=== PATIENT | female | born 1950 | race Caucasian/White ===

== ENCOUNTER 2020-05-03 10:52 | Day surgery (SDC) | payer BC ==
[2020-05-03] MEDS ORDERED: fentaNYL 250 MCG/5 ML VIAL IVP ONE (10:53)
[2020-05-03] MEDS ORDERED: MIDAZOLAM 2 MG/2 ML VIAL IVP ONE (10:53)
[2020-05-03] MEDS ORDERED: LACTATED RINGERS 1,000 ML IV ONE (11:19)
[2020-05-03] MEDS ORDERED: LACTATED RINGERS 100 ML IV ONE (13:43)
[2020-05-03] MEDS ORDERED: ONDANSETRON 4 MG/2 ML VIAL ONE (14:18)
[2020-05-03 14:20] VITALS: BP 115/85
== END 2020-05-03 10:53 | disposition home or self-care (01) ==
LOC: SDS 10:52
PROVIDERS: ATTEND Internal Medicine Gastroenterology
PROC: 0DBK8ZZ Excision of Ascending Colon, Via Natural or Artificial Opening Endoscopic (ICD-10-PCS; principal; 2020-05-03 12:00)
DX: Z12.11 Encounter for screening for malignant neoplasm of colon (principal); D12.2 Benign neoplasm of ascending colon
CPT/HCPCS: 45380; J3010; J7120

== ENCOUNTER 2020-05-05 09:38 | Outpatient (CLI) | payer BC ==
--- NOTE | 2020-05-05 14:35 | DEXA Report ---
PROCEDURE: Dexa Spine and/or Hip INDICATIONS: BONE DISEASE TECHNIQUE: Dual energy x-ray absorptiometry (DXA) was performed on a [employer] System. Regions measur ed are the AP Spine, femoral neck, and if needed forearm. COMPARISON: None. FINDINGS: Lumbar Spine: Bone Mineral Density 1.186 g/cm/cm,T score 0.1, normal Left Hip: Bone Mineral Density 0.853 g/cm/cm,T score -1.2, osteopenia Left Femoral Neck: Bone Mineral Density 0.854 g/cm/cm, T score -1.3, osteopenia (T score greater or equal to -1.0: NORMAL) (T score from -1.1 to -2.4: OSTEOPENIA) (T score less than or equal to -2.5 to: OSTEOPOROSIS) Impression: Osteopenia at the left hip and left femoral neck, normal bone mineral density of the lumb osacral spine. Patients with diagnosis of osteoporosis or osteopenia should have regular bone mineral density assess ment. For those eligible for Medicare, routine testing is allowed once every 2 years. Testing frequ ency can be increased for patients who have rapidly progressing disease or for those who are receivin g medical therapy to restore bone mass. Reviewed by: Priyank Pete MD on 05/05/2020 2:34 PM PDT Approved by: Priyank Pete MD on 05/05/2020 2:34 PM PDT Station ID: [id number]
== END 2020-05-05 09:39 | disposition home or self-care (01) ==
LOC: DI 09:38
PROVIDERS: ATTEND Registered Nurse
DX: M85.89 Other specified disorders of bone density and structure, multiple sites (principal)
CPT/HCPCS: 77080

== ENCOUNTER 2020-10-04 15:29 | Outpatient (CLI) | payer BC, MEDICARE ==
--- NOTE | 2020-10-05 12:47 | Mammography Report ---
BILATERAL DIGITAL SCREENING MAMMOGRAM 3D/2D: 10/04/2020 CLINICAL: Routine screening. Routine screening. No prior exams were available for comparison. The tissue of both breasts is extremely dense, which l owers the sensitivity of mammography. There are grouped fine calcifications in the right breast at 7 o'clock posterior depth. There are grouped fine punctate calcifications in the left breast at 1 o'clock posterior depth. No other significant masses or calcifications are seen in either breast. IMPRESSION: INCOMPLETE: NEEDS ADDITIONAL IMAGING EVALUATION The grouped fine calcifications in the right breast at 7 o'clock posterior depth are indeterminate. Mediolateral, spot magnification, and additional views are recommended. The grouped fine punctate calcifications in the left breast at 1 o'clock posterior depth are indeterm inate. Mediolateral, spot magnification, and additional views are recommended. This exam was interpreted at Station ID: [id number]. NOTE: For mammograms, a report in lay terms will be sent to the patient. Approximately 15% of breast malignancies will not be visualized mammographically. In the management of a palpable breast mass, a negative mammogram must not discourage biopsy of a clinically suspicious lesion. Electronically Signed By: Deondre Fofana M.D. ddp/:10/04/2020 16:06:22 ACR BI-RADS Category 0: Incomplete 3340F PARENCHYMAL PATTERN: (VD) - The breast(s) demonstrate(s) extremely dense parenchyma, limiting the sen sitivity of mammography. BI-RADS CATEGORY: (0) - 0 RECOMMENDATION: (ADDMAM) - Recommend additional mammographic views. [id number] Immediate follow-up LATERALITY: (B)
== END 2020-10-04 15:30 | disposition home or self-care (01) ==
LOC: DI 15:29
PROVIDERS: ATTEND Registered Nurse
DX: Z12.31 Encounter for screening mammogram for malignant neoplasm of breast (principal); N64.89 Other specified disorders of breast

== ENCOUNTER 2020-10-26 09:14 | Outpatient (CLI) | payer MEDICARE ==
--- NOTE | 2020-10-27 12:54 | Mammography Report ---
BILATERAL DIGITAL DIAGNOSTIC MAMMOGRAM 3D/2D: 10/26/2020 CLINICAL: Patient returns for magnification views of microcalcifications in both breasts. Comparison is made to exam dated: 10/04/2020 mammogram - [facility]. The tissue of both breasts is extremely dense, which lowers the sensitivity of mammography. There are grouped fine calcifications in the right breast at 7 o'clock posterior depth. There are grouped fine punctate calcifications in the left breast at 1 o'clock posterior depth. No associated mass is demonstrated. IMPRESSION: PROBABLY BENIGN Bilateral microcalcifications for which follow-up mammogram in 6 months is recommended. This exam was interpreted at Station ID: [id number]. NOTE: For mammograms, a report in lay terms will be sent to the patient. Approximately 15% of breast malignancies will not be visualized mammographically. In the management of a palpable breast mass, a negative mammogram must not discourage biopsy of a clinically suspicious lesion. Electronically Signed By: Serg Elizalde M.D. jr/:10/26/2020 09:58:14 ACR BI-RADS Category 3: Probably benign 3343F PARENCHYMAL PATTERN: (VD) - The breast(s) demonstrate(s) extremely dense parenchyma, limiting the sen sitivity of mammography. BI-RADS CATEGORY: (3) - 3 Mammogram [id number] 6 month follow-up LATERALITY: (B)
== END 2020-10-26 09:15 | disposition home or self-care (01) ==
LOC: DI 09:14
PROVIDERS: ATTEND Registered Nurse
DX: R92.8 Other abnormal and inconclusive findings on diagnostic imaging of breast (principal); R92.0 Mammographic microcalcification found on diagnostic imaging of breast

== ENCOUNTER 2021-06-13 10:42 | Outpatient (CLI) | payer MEDICARE, OTHER ==
--- NOTE | 2021-06-14 08:03 | Mammography Report ---
BILATERAL DIGITAL DIAGNOSTIC MAMMOGRAM 3D/2D: 06/13/2021 CLINICAL: Patient returns for 6 month follow up on bilaeral breast calcifications. Comparison is made to exams dated: 10/26/2020 mammogram and 10/04/2020 mammogram - [facility]. The tissue of both breasts is extremely dense, which lowers the sensitivity of mammography . There are grouped fine calcifications in the right breast at 7 o'clock posterior depth. These are no t significantly changed. There are stable grouped fine punctate calcifications in the left breast at 1 o'clock posterior depth . No other significant masses or calcifications are seen in either breast. IMPRESSION: PROBABLY BENIGN The calcifications in the right breast at 7 o'clock posterior depth are stable and probably benign. The calcifications in the left breast at 1 o'clock posterior depth are also stable and also probably benign. A follow-up mammogram in 6 months is recommended to demonstrate stability. Mammograms are otherwise stable. Findings and recommendations were conveyed to the patient at time of exam. This exam was interpreted at Station ID: [id number]. NOTE: For mammograms, a report in lay terms will be sent to the patient. Approximately 15% of breast malignancies will not be visualized mammographically. In the management of a palpable breast mass, a negative mammogram must not discourage biopsy of a clinically suspicious lesion. Electronically Signed By: Shikha millan/:06/13/2021 13:30:04 ACR BI-RADS Category 3: Probably benign 3343F PARENCHYMAL PATTERN: (VD) - The breast(s) demonstrate(s) extremely dense parenchyma, limiting the sen sitivity of mammography. BI-RADS CATEGORY: (3) - 3 Mammogram [id number] 6 month follow-up LATERALITY: (B)
== END 2021-06-13 10:43 | disposition home or self-care (01) ==
LOC: DI 10:42
PROVIDERS: ATTEND Registered Nurse
DX: R92.1 Mammographic calcification found on diagnostic imaging of breast (principal)

== ENCOUNTER 2021-12-16 08:00 | Outpatient (CLI) | payer MEDICARE, OTHER ==
--- NOTE | 2021-12-16 21:08 | XRAY Report ---
PROCEDURE: Knee 3 View RT INDICATIONS: RIGHT KNEE PAIN TECHNIQUE: 3 views of the right knee(s) were acquired. COMPARISON: None. FINDINGS: Bones: No fractures or dislocations. No suspicious bony lesions. Soft tissues: Mild joint effusion. No suspicious soft tissue calcifications. IMPRESSION: Mild effusion. No visualized acute fracture or dislocation. However, occult injury cannot be excluded . Recommend short interval imaging follow-up in 7-10 days as clinically indicated for additional eval uation. Reviewed by: Billie Zee MD on 12/16/2021 9:06 PM PDT Approved by: Billie Zee MD on 12/16/2021 9:06 PM PDT Station ID: [id number]
== END 2021-12-16 23:59 | disposition home or self-care (01) ==
LOC: DI.S 08:00
PROVIDERS: ATTEND Physician Assistant Medical
DX: M25.561 Pain in right knee (principal); M25.461 Effusion, right knee

== ENCOUNTER 2024-03-10 08:00 | Outpatient (CLI) | payer MEDICARE, OTHER | END 2024-03-10 23:59 | disposition home or self-care (01) | LOC: LAB.S 08:00 | PROVIDERS: ATTEND Physician Assistant Medical | DX: J02.9 Acute pharyngitis, unspecified (principal) | CPT/HCPCS: 87070 ==

== ENCOUNTER 2024-03-17 08:00 | Outpatient (CLI) | payer MEDICARE, OTHER ==
--- NOTE | 2024-03-17 13:06 | XRAY Report ---
Toe(s) 2+V RT HISTORY: 73 years of age, PAIN IN RIGHT TOE TECHNIQUE: Toe(s) 2+V RT COMPARISON: None. FINDINGS/IMPRESSION: Small ossification about the first interphalangeal joint, representing prior injury. No acute fractur e or dislocation. Joint spaces are well maintained. Reviewed by: Virginia Jarvis MD on 03/17/2024 1:05 PM PDT Approved by: Virginia Jarvis MD on 03/17/2024 1:05 PM PDT Station ID: [id number]
== END 2024-03-17 23:59 | disposition home or self-care (01) ==
LOC: DI.S 08:00
PROVIDERS: ATTEND Emergency Medicine
DX: M79.674 Pain in right toe(s) (principal)